=== PATIENT | male | born 1960 | race Caucasian/White ===

== ENCOUNTER 2020-05-04 13:44 | Emergency (ER) | payer BC ==
[~2020-05-04] VITALS: Ht 177.8 cm; Wt 122.7 kg
[2020-05-04 14:25] VITALS: BP 160/100
== END 2020-05-04 14:28 ==
LOC: ER 13:44
DX: Z04.1 Encounter for examination and observation following transport accident (principal); E11.9 Type 2 diabetes mellitus without complications; E78.5 Hyperlipidemia, unspecified; I10 Essential (primary) hypertension; V49.9XXA Car occupant (driver) (passenger) injured in unspecified traffic accident, initial encounter; Y92.414 Local residential or business street as the place of occurrence of the external cause
CPT/HCPCS: 99283